=== PATIENT | female | born 1995 | race Caucasian/White ===

== ENCOUNTER 2021-06-23 12:18 | Inpatient (IN) | payer OTHER ==
[~2021-06-23] VITALS: Ht 149.9 cm; Wt 75.0 kg
[2021-06-23] VITALS (11 sets, daily range): BP systolic 101–133; BP diastolic 55–75
[2021-06-23] MEDS ORDERED: ACET-907 PO (12:45)
[2021-06-23] MEDS ORDERED: PRENTAB53 PO (12:45)
[2021-06-23] MEDS ORDERED: HOME MED LIST COMPLETE! XX SCH (12:50)
--- NOTE | 2021-06-23 17:29 | HPEPDOC ---
Obstetrical History & Physical General Date of Admission Jun 23, 2021 at 17:06 History of Present Illness 26 yo female at 37 6/7 weeks by LMP c/w 14 week ultrasound (EDC= 1) presents with regular contractions every 5 minutes today. The contractions increased in intensity. no bleeding. Information Provided By: Patient Age: 26 : 2 Term: 0 Pre-term: 1 Abortions: 0 Livin Care Care: Good Care Dating Final EDC: Jul 08, 2021 Final EDC by: LMP, 2nd trimester (US) Antepartum Course Diagnos(e)s [place] speaking h/o delivery transfer of care from [facility] OB Past Medical History Past Medical History Medical History OB hx: 36 week PPROM Surgical History: Denies/None Social History Marital Status: Family situation: Spouse/partner home Psychosocial History: No pertinent psych hx Allergies Coded Allergies: No Known Allergies (Unverified , 06/23/21) Medications Scheduled Vit,Calc76/Iron/Folic (Prenatabs Rx Tablet) 1 Each Tablet, 1 TAB PO DAILY Scheduled PRN Acetaminophen (Tylenol) 325 Mg Tablet, 650 MG PO Q4HP PRN for MILD DISCOMFORT Physical Examination Physical Examination GENERAL: Alert and oriented times three. BREAST: . ABDOMEN: Gravid and non-tender to touch. FETUS: Is vertex (VTX) by sterile vaginal examination (SVE), fetus is vertex (VTX) by Jevon. HEART RATE: Regular rate and rhythm. LUNGS: Clear to auscultation (CTA). EXTREMITIES: No edema. No clonus. Deep tendon reflexes (DTRs) + . Vital Signs/I&O Vital Signs Date Time Temp Pulse Resp B/P (MAP) Pulse Ox O2 Delivery O2 Flow Rate FiO2 06/23/21 12:48 83 97 Room Air 06/23/21 12:38 98.3 16 119/64 (82) Laboratory Data 24H LABS Laboratory Tests 2 06/23/21 15:01: Coronavirus (COVID-19)(PCR) NEGATIVE Pertinent Laboratoy Data Group B Streptococcus: Negative Vaginal Examination Dilation: 4 cm Effacement: 70% Station: -1 Cervical Consistency: Soft Cervical Position: Middle Presentation: Cephalic presentation Assessment Variability: Moderate Accelerations: Positive Decelerations: None Tocometer Contractions: Yes Frequency: regular Assessment/Plan Assessment 26 yo female at 37 6/7 weeks by LMP c/w 14 week ultrasound (EDC=05/2021) presents in labor Plan Admit and orient. Staffing Associate and consent. Diet: reg Group B Streptococcus (GBS) negative. Labs and intravenous (IV) per unit protocol. Anticipate normal spontaneous delivery (). C-S as appropriate. COVID neg test ISI PERRY MD Jun 23, 2021 17:29
[2021-06-23 17:55] LABS: HEMATOCRIT 33.3 % (36.0-47.0); HEMOGLOBIN 11.5 g/dl (12.0-15.5); MEAN CORPUSCULAR HGB CONC 34.5 g/dl (32.0-36.5); MEAN CORPUSCULAR VOLUME 92.8 fl (80.0-96.0); PLATELET COUNT, AUTOMATED 219 10^3/uL (150-450); RED BLOOD COUNT 3.59 10^6/uL (4.00-5.40); WHITE BLOOD COUNT 14.7 10^3/uL (4.0-10.0)
[2021-06-23] MEDS ORDERED: ACETAMINOPHEN 500 MG TAB PO PRN (19:55)
[2021-06-23] MEDS ORDERED: OXYTOCIN DRIP 30 UNITS in IV 1 EA IV SCH (19:55)
[2021-06-23] MEDS: LR 1,000 ML IV SCH (20:04)
[2021-06-23] MEDS: CEPACOL LOZENGE PO PRN (20:04)
[2021-06-24] VITALS (22 sets, daily range): BP systolic 102–162; BP diastolic 60–105
[2021-06-24] MEDS: CEPACOL LOZENGE PO PRN (02:08)
[2021-06-24] MEDS: LR 1,000 ML IV SCH (03:55)
[2021-06-24] MEDS ORDERED: FENTANYL 2MCG/ML ROPIVACAINE 0.2% IN 0.9% NACL 100ML IVBAG As Ordered ONE (05:10)
[2021-06-24] MEDS ORDERED: LACTATED RINGER'S 1000 ML IV PRN (06:05)
[2021-06-24] MEDS ORDERED: ONDANSETRON 4MG/2ML VIAL IV PRN (06:05)
[2021-06-24] MEDS ORDERED: FENTANYL/ROPIVACAINE/NACL BAG 100 ML EPIDURAL SCH (06:05)
[2021-06-24] MEDS ORDERED: ePHEDrine SULFATE 25 MG/5 ML(5MG/ML) SYRINGE IV PRN (06:05)
[2021-06-24] MEDS ORDERED: EPIDURAL COMMENT XX SCH (06:05)
[2021-06-24] MEDS ORDERED: NALOXONE INJ 0.4MG/1ML VIAL (J2310 PER 1MG) IV PRN (06:05)
[2021-06-24] MEDS ORDERED: EPIDURAL/PCA KEYS XX PRN (06:05)
[2021-06-24] MEDS ORDERED: diphenhydrAMINE 50MG/ML VIAL (J1200) IV PRN (06:05)
[2021-06-24] MEDS ORDERED: REFRIGERATOR IV KEYS XX PRN (06:05)
[2021-06-24] MEDS ORDERED: MEASLES,MUMPS,RUBELLA VACCINE INJ (MMR-II) (90707) SC SCH (08:05)
[2021-06-24] MEDS ORDERED: DIBUCAINE 1% OINTMENT 30GM TOP PRN (08:05)
[2021-06-24] MEDS ORDERED: DOCUSATE SODIUM 100MG CAPSULE PO PRN (08:05)
[2021-06-24] MEDS ORDERED: ACETAMINOPHEN TAB 650MG DOSE (2X325MG) PO PRN (08:05)
[2021-06-24] MEDS ORDERED: IBUPROFEN 600MG TAB PO PRN (08:05)
[2021-06-24] MEDS ORDERED: RHOGAM 300 MCG (1500 IU) INJ (J2790) IM SCH (08:05)
[2021-06-24] MEDS ORDERED: OXYTOCIN DRIP 30 UNITS in IV 1 EA IV ONE (08:05)
[2021-06-24] MEDS ORDERED: METHYLERGONOVINE MALEATE 0.2 MG TAB PO PRN (08:05)
--- NOTE | 2021-06-24 08:38 | DNPDOC ---
[facility] Delivery Note Delivery Note DATE OF DELIVERY: June 24, 2021 PREDELIVERY DIAGNOSIS: 37-6/7 weeks' gestation and labor. POST DELIVERY DIAGNOSIS: Delivered. PROCEDURE: Spontaneous vaginal delivery NUCLEAR PHYSICIST: Dr. Isi Perry MD ANESTHESIA: Epidural. ESTIMATED BLOOD LOSS: 300 mL. FINDINGS: 6 pound 2 ounce male , Score 8/9, tight nuchal cord times 1. DELIVERY SUMMARY: Patient is a 26-year-old 2 now para 2 who was admitted to labor and delivery for labor. She required augmentation with Pitocin. AROM was performed. After a 40-minute second stage of labor she had spontaneous vaginal delivery 6 pound 2 ounce male infant score 9 and 9. A tight nuchal cord x1 was delivered through. The infant was handed to the mother. The cord was doubly clamped and cut. The placenta delivered spontaneously and appeared to be intact. The patient received IV Pitocin immediately after delivery of the placenta. A first-degree perineal laceration was repaired with 2-0 chromic in the usual fashion. Sponge and needle counts were correct. ISI PERRY MD Jun 24, 2021 08:38
[2021-06-24] MEDS: PRENATAL VITAMINS CHEWABLE TABLET PO SCH (09:37)
[2021-06-24] MEDS: IBUPROFEN 800 MG TAB PO PRN ×2 (09:38→16:59)
[2021-06-24] MEDS: ACETAMINOPHEN 500 MG TAB PO PRN ×2 (14:35→21:49)
[2021-06-25] MEDS: IBUPROFEN 800 MG TAB PO PRN (01:49)
[2021-06-25 06:03] VITALS: BP 121/74
[2021-06-25] MEDS: ACETAMINOPHEN 500 MG TAB PO PRN (08:04)
[2021-06-25] MEDS: PRENATAL VITAMINS CHEWABLE TABLET PO SCH (08:05)
[2021-06-25] MEDS ORDERED: DIBU28OI2 TOP (14:07)
--- NOTE | 2021-06-25 14:08 | IPNPDOC ---
Progress Note Date of Service: Jun 25, 2021 Progress Note SUBJECT: Status post . She has been ambulating, voiding spontaneously without issue and tolerating regular diet. Lochia decreasing/minimal. Pain is well-controlled. Denies headache, visual changes, right upper quadrant pain, shortness breath or chest pain. OBJECTIVE: VITAL SIGNS: Within normal limits, afebrile. Alert and oriented times three. Abdomen: Fundus firm at U-2. Soft, NTTP. ASSESSMENT: Status post uncomplicated spontaneous vaginal delivery. Vitals within normal limits, afebrile, hemodynamically stable with no evidence of infection. PLAN: Discharge to home today. Tylenol and Motrin for pain. Routine instructions/precautions reviewed. Routine PP visit in 6 weeks in clinic. VS, I&O, 24H, Fishbone Vital Signs/I&O Vital Signs Date Time Temp Pulse Resp B/P (MAP) Pulse Ox O2 Delivery O2 Flow Rate FiO2 06/25/21 06:03 98.1 76 18 121/74 (90) Room Air 06/24/21 13:53 100 I&O- Last 24 Hours up to 6 AM 06/25/21 06:00 Intake Total 1018 ml Output Total 1300 ml Balance -282 ml MARY STILL DO Jun 25, 2021 14:08
== END 2021-06-25 15:20 | disposition home or self-care (01) | DRG 807 ==
LOC: M LDO 12:18 → M LDI 17:06 → M OBS 06-24 13:52
PROVIDERS: ADMIT Specialist; ATTEND Specialist
PROC: 10E0XZZ Delivery of Products of Conception, External Approach (ICD-10-PCS; principal; 2021-06-24)
PROC: 10907ZC Drainage of Amniotic Fluid, Therapeutic from Products of Conception, Via Natural or Artificial Opening (ICD-10-PCS; 2021-06-24)
PROC: 0HQ9XZZ Repair Perineum Skin, External Approach (ICD-10-PCS; 2021-06-24)
DX: O69.1XX0 Labor and delivery complicated by cord around neck, with compression, not applicable or unspecified (principal); Z37.0 Single live birth; Z3A.37 37 weeks gestation of pregnancy; Z20.822 Contact with and (suspected) exposure to COVID-19; O70.0 First degree perineal laceration during delivery